=== PATIENT | male | born 1965 | race Caucasian/White ===

== ENCOUNTER 2016-12-05 10:55 | Emergency (ER) | payer SELFPAY ==
[2016-12-05 11:22] LABS: #Basophils 0.1 thou/uL (0.0-0.2); #Eosinphils 0.1 thou/uL (0.0-0.7); #Lymphocytes 1.7 thou/uL (1.20-3.40); #Monocytes 0.4 thou/uL (0.11-0.59); #Neutrophils 3.1 thou/uL (1.40-6.50); %Basophils 1.4 % (0.0-1.0); %Eosinophils 1.7 % (0.0-10.0); %Monocytes 7.4 % (0.0-10.0); Hematocrit 44.5 % (42.0-52.0); Mean Platelet Volume 6.2 fL (7.4-10.4); Red Blood Cell (RBC) Count 4.94 mill/uL (4.70-6.10); White Blood Cell (WBC) Count 5.3 thou/uL (4.8-10.8)
[2016-12-05] MEDS ORDERED: Lorazepam 0.5 MG TAB ONE (11:24)
[2016-12-05 11:39] LABS: ALT (SGPT) 39 U/L (0-55); AST (SGOT) 26 U/L (5-34); Alkaline Phosphatase 77 U/L (40-150); Anion Gap 13 mmol/L (10-20); BUN (Urea Nitrogen) 16 mg/dL (8.4-25.7); Bilirubin, Total 1.4 mg/dL (0.2-1.2); Calc. Creatinine Clearance 0 mL/min (70-130); Calcium 9.2 mg/dL (7.8-10.44); Carbon Dioxide 23 mmol/L (22-29); Chloride 107 mmol/L (98-107); Estimated GFR-MDRD 86; Globulin 3.8 g/dL (2.4-3.5); Protein, Total 8.2 g/dL (6.0-8.3)
[2016-12-05 11:40] LABS: Troponin I 0.033 ng/mL (< 0.028)
[2016-12-05 13:41] LABS: Troponin I 0.049 ng/mL (< 0.028)
== END 2016-12-05 14:00 | disposition left against medical advice (07) ==
LOC: BURERS 10:55
DX: I10 Essential (primary) hypertension (principal); F41.9 Anxiety disorder, unspecified; F17.220 Nicotine dependence, chewing tobacco, uncomplicated
CPT/HCPCS: 36415; 80053; 82553; 84484; 85025; 93005